=== PATIENT | female | born 1975 | race American Indian/Alaskan Native ===

== ENCOUNTER 2017-03-15 18:35 | Emergency (ER) | payer BC, MEDICAID ==
[2017-03-15 18:35] VITALS: BMI 39.3
--- NOTE | 2017-03-15 19:53 | ED PDOC ---
Arrival/HPI <Moises Mendes - Last Filed: 03/15/17 22:03> - General Historian: Patient <Alexandra Dc PA-C - Last Filed: 03/16/17 01:56> - General Chief Complaint: Back Pain Time Seen by Provider: 03/15/17 19:02 - History of Present Illness Narrative History of Present Illness (Text): 03/15/17 19:50 41 yo F reports 1 day h/o pain in the R lower back radiating to the R buttock, worse with certain movements and positions. Patient states that she works for [email or web address] and does heavy lifting up to 70 lbs daily. Reports having h/o sciatica in the past several years ago. Reports taking flexeril yesterday and old Rx of tramadol this morning without relief prompting ED visit. Otherwise : (-) trauma, (-) injury, (-) fall, (-) abdominal pain, (-) paresthesias, (-) weakness, (-) acute bowel or bladder dysfunction, (-) urinary symptoms, (-) fever. PMD [place] (Alexandra Dc PA-C) Past Medical History - Provider Review Nursing Documentation Reviewed: Yes - Past History Past History: No Previous - Infectious Disease Hx of Infectious Diseases: None - Tetanus Immunization Tetanus Immunization: Unknown - Cardiac Hx Cardiac Disorders: Yes Hx Circulatory Problems: Yes - Pulmonary Hx Respiratory Disorders: No - Neurological Hx Neurological Disorder: No - HEENT Hx HEENT Disorder: No - Renal Hx Renal Disorder: No - Endocrine/Metabolic Hx Endocrine Disorders: No - Hematological/Oncological Hx Blood Disorders: No - Integumentary Hx Dermatological Disorder: No - Musculoskeletal/Rheumatological Hx Musculoskeletal Disorders: No Hx Back Pain: No Hx Falls: No Hx Unsteady Gait: No - Gastrointestinal Hx Gastrointestinal Disorders: Yes Hx Gastrointestinal Ulcer: Yes - Genitourinary/Gynecological Hx Genitourinary Disorders: No - Psychiatric Hx Psychophysiologic Disorder: No Hx Depression: No Hx Emotional Abuse: No Hx Physical Abuse: No Hx Substance Use: No - Past Surgical History Past Surgical History: No Previous - Surgical History Hx Section: Yes - Suicidal Assessment Feels Threatened In Home Enviroment: No <Alexandra Dc PA-C - Last Filed: 03/16/17 01:56> Family/Social History - Physician Review Nursing Documentation Reviewed: Yes Family/Social History: Unknown Family HX Smoking Status: Never Smoked Hx Alcohol Use: Yes Frequency of alcohol use: Socially Hx Substance Use: No Hx Substance Use Treatment: No <Alexandra Dc PA-C - Last Filed: 03/16/17 01:56> Allergies/Home Meds <Moises Mendes - Last Filed: 03/15/17 22:03> <Alexandra Dc PA-C - Last Filed: 03/16/17 01:56> Allergies/Adverse Reactions: Allergies FISH Allergy (Mild, Uncoded 03/15/17 18:56) RASH Review of Systems - Review of Systems Constitutional: Normal. absent: Fatigue, Weight Change, Fevers Respiratory: Normal. absent: SOB, Cough, Sputum Cardiovascular: Normal. absent: Chest Pain, Palpitations, Edema Gastrointestinal: Normal. absent: Abdominal Pain, Nausea, Vomiting Genitourinary Female: Normal. absent: Dysuria, Frequency, Hematuria Musculoskeletal: Normal, Back Pain. absent: Arthralgias, Neck Pain Skin: Normal. absent: Rash, Pruritis, Skin Lesions <Alexandra Dc PA-C - Last Filed: 03/16/17 01:56> Physical Exam <Moises Mendes - Last Filed: 03/15/17 22:03> <Alexandra Dc PA-C - Last Filed: 03/16/17 01:56> - Physical Exam Narrative Physical Exam (Text): 03/15/17 19:55 GENERAL APPEARANCE: Patient is awake, alert, oriented x 3, in mild painful distress. SKIN: Warm, dry; (-) cyanosis. EYES: (-) conjunctival pallor. ENMT: Mucous membranes moist. NECK: (-) tenderness, (-) stiffness, (-) lymphadenopathy. CHEST AND RESPIRATORY: (-) rales, (-) rhonchi, (-) wheezes; breath sounds equal bilaterally. HEART AND CARDIOVASCULAR: (-) irregularity; (-) murmur, (-) gallop. ABDOMEN AND GI: Soft; (-) tenderness; (-) palpable mass. BACK: (+) point tenderness to the R paralumbar area, (+) mild spasm, (-) direct bony tenderness, (-) deformity. EXTREMITIES: (-) deformity. Distal pulses good bilaterally. NEURO AND PSYCH: Mental status as above. Intact sensation bilaterally; normal strength in extension of the knees, plantar and dorsiflexion of the toes. DTRs symmetric. (Alexandra Dc PA-C) Vital Signs Temp Pulse Resp BP Pulse Ox 03/15/17 22:17 19 99 03/15/17 21:07 98.0 F 85 17 133/86 99 03/15/17 18:52 98.2 F 88 16 131/89 100 Medical Decision Making <Moises Mendes - Last Filed: 03/15/17 22:03> <Alexandra Dc PA-C - Last Filed: 03/16/17 01:56> ED Course and Treatment: 03/15/17 19:53 41 yo F w/ PMH pf sciatica reports 1 day h/o pain in the R lower back radiating to the R buttock, worse with certain movements and positions. Patient states that she works for [email or web address] and does heavy lifting up to 70 lbs daily. Plan : - XR L spine - XR R hip - tramadol PO / toradol IM / flexeril PO - Uhcg Uhcg (-) XR L spine: no fracture, mild djd, as read by PA XR right hip: no fracture, no dislocation, as read by PA Patient advised that official radiology read of XR is still pending and will call the patient if there is any discrepancy within 24 hours. On re-evaluation, patient reports of continued pain. On exam, patient is laying in bed in no acute distress. Patient given morphine 4mg IM and zofran 4 mg ODT. XR results d/w the patient. Likely diagnosis of back strain and sciatica d/w the patient. Advised to follow up with primary care physician in 1-2 days without fail. Advised to take medication as prescribed. Return to the emergency room at any time for any new or worsening symptoms. Patient states she fully agrees with and understands discharge instructions. States that she agrees with the plan and disposition. Verbalized and repeated discharge instructions and plan. I have given the patient opportunity to ask any additional questions. (Alexandra Dc PA-C) - RAD Interpretation Radiology Orders: 03/15/17 19:23 HIP MIN 2V W/ PELVIS RT [RAD] Stat LS SPINE WITH OBL > 18 YRS OLD [RAD] Stat - Medication Orders Current Medication Orders: Discontinued Medications Cyclobenzaprine HCl (Flexeril) 10 mg PO STAT STA Stop: 03/15/17 19:23 Last Admin: 03/15/17 19:44 Dose: 10 mg Ketorolac Tromethamine (Toradol) 60 mg IM STAT STA Stop: 03/15/17 19:23 Last Admin: 03/15/17 19:44 Dose: 60 mg MAR Pain Assessment Document 03/15/17 19:44 [email or web address] (Rec: 03/15/17 19:44 [email or web address] [id number]) Pain Reassessment Is this a pain reassessment? No Sleep Is patient sleeping during reassessment? No Presence of Pain Presence of Pain Yes Pain Scale Used Pain Scale Used Numeric Location Left, Right or Bilateral Right Upper or Lower Lower Pain Location Body Site Back Description Description Constant Intensity of Pain at present 7 Pain Behavior Facial Grimacing Aggravating Factors Changing Position Alleviating Factors/Management Position Change Techniques Alleviating Factors Medication IM Administration Charges Document 03/15/17 19:44 [email or web address] (Rec: 03/15/17 19:44 [email or web address] [id number]) Injection Site MAR Injection Site Right Gluteus Jeremy Charges for Administration # of IM Administrations 1 Morphine Sulfate (Morphine) 4 mg IM STAT STA Stop: 03/15/17 20:52 Last Admin: 03/15/17 21:05 Dose: 4 mg MAR Pain Assessment Document 03/15/17 21:05 [email or web address] (Rec: 03/15/17 21:05 CAST [id number]) Pain Reassessment Is this a pain reassessment? No Sleep Is patient sleeping during reassessment? No Presence of Pain Presence of Pain Yes Pain Scale Used Pain Scale Used Numeric Location Left, Right or Bilateral Right Upper or Lower Lower Pain Location Body Site Back Description Description Constant Intensity of Pain at present 8 Pain Behavior Facial Grimacing Aggravating Factors Changing Position Alleviating Factors/Management Position Change Techniques Alleviating Factors Medication IM Administration Charges Document 03/15/17 21:05 [email or web address] (Rec: 03/15/17 21:05 [email or web address] [id number]) Injection Site MAR Injection Site Right Gluteus Jeremy Charges for Administration # of IM Administrations 1 Ondansetron HCl (Zofran Odt) 4 mg PO STAT STA Stop: 03/15/17 20:52 Last Admin: 03/15/17 21:06 Dose: 4 mg Tramadol HCl (Ultram) 50 mg PO STAT STA Stop: 03/15/17 19:23 Last Admin: 03/15/17 19:45 Dose: 50 mg MAR Pain Assessment Document 03/15/17 19:45 [email or web address] (Rec: 03/15/17 19:45 [email or web address] [id number]) Pain Reassessment Is this a pain reassessment? No Sleep Is patient sleeping during reassessment? No Presence of Pain Presence of Pain Yes Pain Scale Used Pain Scale Used Numeric Location Left, Right or Bilateral Right Upper or Lower Lower Pain Location Body Site Back Description Description Constant Intensity of Pain at present 7 Pain Behavior Facial Grimacing Aggravating Factors Changing Position Alleviating Factors/Management Position Change Techniques Alleviating Factors Medication - PA / PLANE RUNNER / Resident Statement BRITTANY has reviewed & agrees with the documentation as recorded. BRITTANY has examined the patient and agrees with the treatment plan. <Moises Mendes - Last Filed: 03/15/17 22:03> - PA / PLANE RUNNER / Resident Statement BRITTANY has reviewed & agrees with the documentation as recorded. <Alexandra Dc PA-C - Last Filed: 03/16/17 01:56> Disposition/Present on Arrival <Moises Mendes - Last Filed: 03/15/17 22:03> - Present on Arrival Any Indicators Present on Arrival: No History of DVT/PE: No History of Uncontrolled Diabetes: No Urinary Catheter: No History of Decub. Ulcer: No History Surgical Site Infection Following: None - Disposition Have Diagnosis and Disposition been Completed?: Yes Disposition Time: 21:00 Patient Plan: Discharge <Alexandra Dc PA-C - Last Filed: 03/16/17 01:56> - Disposition Diagnosis: Low back pain Disposition: HOME/ ROUTINE Condition: STABLE Discharge Instructions (ExitCare): Sciatica (ED), Acute Low Back Pain (ED) Print Language: GEORGIAN Additional Instructions: Thank you for letting us take care of you today. You were treated for low back pain, possible sciatica. The emergency medical care you received today was directed at your acute symptoms. If you were prescribed any medication, please fill it and take as directed. It may take several days for your symptoms to resolve. Return to the Emergency Department if your symptoms worsen, do not improve, or if you have any other problems. Please contact your doctor in 2 days for re-evaluation and follow up. Bring any paperwork you were given at discharge with you along with any medications you are taking to your follow up visit. Our treatment cannot replace ongoing medical care by a primary care provider (PCP) outside of the emergency department. Thank you for allowing the [facility] team to be part of your care today. If you had an X-Ray : A Radiologist will review the ED reading if any change in treatment is needed we will contact you. Prescriptions: Cyclobenzaprine [Cyclobenzaprine HCl] 10 mg PO TID PRN #15 tab PRN Reason: Muscle Spasm Meloxicam [Mobic] 15 mg PO DAILY #20 tab traMADol [Ultram] 50 mg PO TID #15 tab Forms: [employer] (Colombian), WORK NOTE
[2017-03-15] MEDS ORDERED: Morphine 4 mg/ml ISec IM STA (20:51)
[2017-03-15 21:08] VITALS: BP 133/86; PULSE 85; TEMP 98; O2SAT 99
[2017-03-15 22:17] VITALS: RESP 19
--- NOTE | 2017-03-16 08:13 | RAD ---
PROCEDURE: Right Hip and pelvis Radiographs. HISTORY: pain COMPARISON: None. FINDINGS: BONES: Normal. No fracture. JOINTS: Normal. SOFT TISSUES: Normal. OTHER FINDINGS: None. IMPRESSION: Normal radiographs of right hip.
--- NOTE | 2017-03-16 08:14 | RAD ---
PROCEDURE: Radiographs of the Lumbar Spine. HISTORY: pain COMPARISON: No prior. FINDINGS: BONES: Normal alignment. No listhesis. No fracture. DISC SPACES: Unremarkable. OTHER FINDINGS: None. IMPRESSION: Unremarkable radiographs of the lumbar spine.
== END 2017-03-15 22:17 | disposition home or self-care (01) ==
LOC: ED 18:35
DX: M54.5 Low back pain (principal)
CPT/HCPCS: 72110; 73502; 96372; 99283; J1885; J2270